=== PATIENT | female | born 1970 | race Caucasian/White ===

== ENCOUNTER 2022-03-01 16:18 | Outpatient (CLI) | payer OTHER, SELFPAY ==
--- NOTE | ~2022-03-01 | MM_ITS ---
EXAMINATION: MM screening adriel BI w jean claude HISTORY: Screening mammogram, family history of breast cancer in her mother. TECHNIQUE: Craniocaudal and mediolateral oblique 3-D tomosynthesis images were obtained and synthetic 2-D images were generated. CAD analysis was submitted and interpreted. COMPARISON: 03/14/2019, 07/01/2016, 04/22/2015 BREAST PARENCHYMAL COMPOSITION: There are scattered areas of fibroglandular density. FINDINGS: There is no suspicious mass, calcification, or architectural distortion to suggest malignan cy in either breast. There has been no suspicious interval change. IMPRESSION: 1. No mammographic evidence of malignancy. 2. Recommend routine screening mammography in one year. BI-RADS Category 1: Negative Reviewed, dictated and finalized at location A.
== END 2022-03-01 16:19 | disposition home or self-care (01) ==
LOC: ANHIMG 16:25
PROVIDERS: PCP Family Medicine; Visit Provider Obstetrics & Gynecology
DX: Z12.31 Encounter for screening mammogram for malignant neoplasm of breast (principal)
CPT/HCPCS: 77063; 77067

== ENCOUNTER 2024-09-10 09:10 | Outpatient (CLI) | payer OTHER, SELFPAY ==
--- NOTE | ~2024-09-10 | MM_ITS ---
EXAMINATION: MM screening adriel BI w jean claude HISTORY: Screening TECHNIQUE: Craniocaudal and mediolateral oblique 3-D tomosynthesis images were obtained and synthetic 2-D images were generated. CAD analysis was submitted and interpreted. COMPARISON: Comparison to multiple prior studies sequentially, with oldest reviewed study dated 06/21. BREAST PARENCHYMAL COMPOSITION: Not dense: There are scattered areas of fibroglandular density. FINDINGS: There is no evidence of suspicious mass, calcification, or architectural distortion to sugg est malignancy in either breast. There has been no suspicious interval change. IMPRESSION: 1. No mammographic evidence of malignancy. 2. Recommend routine screening mammography in one year. BI-RADS Category 1: Negative Reviewed, dictated and finalized at location A. N DYER
--- OUTSIDE RECORDS SUMMARY | 2024-09-12 16:39 | XMS_ITS | Clinical Summary ---
Author Organization [facility] Address [address] [place] [id number] Care Team Providers Care Varnish Mixer Name Role Phone Unavailable Primary Care Provider Unavailabl e Social History Tobacco Use Types Packs/Day Years Used Date Smoking Tobacco: Never Assessed Comments Unknown Sex and Gender Information Value Date Recorded Sex Assigned at Not on file Legal Sex Female 11:57 AM HEADRIG SAWYER Gender Identity Not on file Sexual Orientation Not on file Plan of Treatment Health Maintenance Due Date Last Done Comments Hepatitis C Virus (HCV) Screening 1968 TdaP Immunization 1968 Hepatitis B Immunization (1 of 3 - 19+ 3-dose series) 1987 Pap Smear 1989 Cervical Cancer Screening (CCS) 1998 HPV/Cotest 1998 Colonoscopy 2013 Colorectal Cancer Screening 2013 Cologuard 2018 Immunochemical Fecal Occult Blood 2018 Mammogram 2018 Pneumococcal Immunization (5 0+ years) (1 of 1 - PCV) 2018 Zoster Immunization (1 of 2) 2018 Influenza Immunization (#1) 2024 SARS-COV-2 Immunization ( - 2023- season) 2024 Respiratory Syncytial Virus (RSV) Immunization (Adult) (1 - 1-dose 75+ series) 2043 Meningococcal Immunization (ACWY) Aged Out No longer eligible based on patient's age to complete this topic Pneumococcal Immunization Combined Aged Out No longer eligible based on patient's age to complete this topic Rotavirus Immunization Aged Out No lo nger eligible based on patient's age to complete this topic Insurance [employer] on file
--- OUTSIDE RECORDS SUMMARY | 2024-09-12 16:39 | XMS_ITS | Referral Summary ---
Author Organization [facility] Address [address] [place] [address] Care Team Providers Care Ship Propeller Finisher Name Role Phone Unavailable Primary Care Provider Unavailabl e Source Comments [facility],non-owned Affiliates and Associated Physician Practices is amultiple site organization consisting of ambulatory clinics and hospital sitesin [place], [place], [place] and [place]. This disclosure is being madepursuant to the Care Everywhere program and may not contain all information available regarding this patient. Last updated 18.[facility] [employer] Social History Tobacco Use Types Packs/Day Years Used Date Smoking Tobacco: Never Assessed Sex and Gender Information Value Date Recorded Sex Assigned at Not on file Gender Identity Not on file Sexual Orientation Not on file Last Filed Vital Signs Vital Sign Reading Time Taken Comments Blood Pressure 100/78 09/25/2014 10:15 AM LEAD APPLICATIONS DEVELOPER Pulse 61 09/25/2014 10:15 AM LEAD APPLICATIONS DEVELOPER Temperature 36.4 ??C (97.6 ??F) 09/25/2014 10:[address] Respiratory Rate 12 07/03/2014 1:34 PM LEAD APPLICATIONS DEVELOPER Oxygen Saturation 100% 09/25/2014 10:15 AM LEAD APPLICATIONS DEVELOPER Inhaled Oxygen Concentration - - Weight 71.5 kg (157 lb 9.6 oz) 09/25/2014 10:15 AM LEAD APPLICATIONS DEVELOPER Height 172.7 cm (5' 8 ) 07/03/2014 1:34 PM LEAD APPLICATIONS DEVELOPER Body Mass Index 23.96 07/03/2014 1:34 PM LEAD APPLICATIONS DEVELOPER Plan of Treatment Not on file Procedures Procedure Name Priority Date/Time Associated Diagnosis Comments HEPATITIS C ANTIBODY Routine 06/14/2014 11:51 AM CDT from Last 3 Months or Most Recently Relevant to Health Maintenance Results * HEPATITIS C ANTIBODY (06/14/2014 11:51 AM CDT) Hepatitis C Antibody NON-REACTI VE NON-REACT [facility]) Signal/Cutoff 0.02 <1.00 [facility]) Comment: Test Performed at: [facility] [address], [place] ??[id number] FERNANDA SYLVESTER DO,MPH Blood specimen (specimen) BLOOD SPECIMEN / Unknown 06/14/2014 11:51 AM CDT 06/14/2014 11:52 AM CDT Deonna Cobb MD LAB - CHEM ISTRY ORDERABLES [facility]) from Last 3 Months or Most Recently Relevant to Health Maintenance
--- OUTSIDE RECORDS SUMMARY | 2024-09-12 16:39 | XMS_ITS | Clinical Summary ---
Author Organization [facility] Address [address] [place] [address] Care Team Providers Care Service Developer Name Role Phone Talya Alexandre MD Primary Care Provider [phone] Esther Figueroa MD Unavailable [phone] eBss Scruggs MD Unavailable Allergies Active Allergy Reactions Criticality Noted Date Comments Carbamazepine Hives Medium Adalimumab Rash Medium 12/21/2023 Medications econazole 1 % cream apply by topical route 2 times every day to the affected and surrounding areas of skin 0 0 5 Active folic acid (FOLVITE) 1 mg tablet take 1 tablet by oral route every day 0 0 5 Active estrogens-methy lTESTOSTERone (EEMT,COVARYX) 1.25-2.5 mg per tablet 5 9 Active predniSONE (DELTASONE) 5 mg tablet As needed 2 Active traMADoL (ULTRAM) 50 mg tablet every 8 (eight) hours as needed Active apremilast (Otezla) 30 mg tablet Take 1 tablet (30 mg total) by mouth 2 (two) times a day Active Simponi 50 mg/0.5 mL pen injector Inject 0.5 mL (50 mg total) under the skin every 30 (thirty) days 4 Active lamoTRIgine XR (LaMICtal XR) 300 mg tablet extended release 24hr Take 1 tablet (300 mg total) by mouth 2 (two) times a day 180 tablet 3 4 Active atogepant 60 mg tablet Take 60 mg by mouth daily 90 tablet 3 4 06/27/20 25 Active acetaZOLAMIDE (DIAMOX) 250 mg tablet TAKE 2 TABLETS TWICE A DAY 360 tablet 3 4 Active methotrexate 2.5 mg tablet 10 tablets orally once a week 4 Active benzonatate (TESSALON) 100 mg capsuleIndicati ons:Cough Take 1-2 capsules (100-200 mg total) by mouth 3 (three) times a day as needed for cough 42 capsule 4 Active albuterol HFA (PROVENTIL HFA,VENTOLIN HFA,PROAIR HFA) 90 mcg/actuation inhalerIndicati ons:Acute cough 1-2 puffs every 4-6 hrs PRN cough, sob, or wheezing 1 each 4 Active predniSONE (DELTASONE) 10 mg tabletIndicatio ns:Acute cough Take 1 tablet (10 mg) by mouth 2 (two) times a day 10 tablet 4 Active doxycycline (VIBRAMYCIN) 100 mg capsuleIndicati ons:Recurrent sinusitis Take 1 tablet/capsule (100 mg total) by mouth 2 (two) times a day for 7 days 14 tablet/capsu le 4 08/13/20 24 Active Problems Problem Noted Date Diagnosed Date Family history of cerebral aneurysm 07/03/2023 Psoriatic arthritis 12/29/2022 12/29/2022 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 12/29/2022 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 3 Situational stress 09/09/2019 Intractable migraine without aura and without status migrainosus 06/02/2017 Visual changes 06/02/2017 Transient visual loss 03/16/2016 Migraine headache 03/16/2016 Pain of lumbar spine 07/27/2015 Generalized epilepsy (CMS/HCC) 09/16/2014 Overview (11/24/2016): Generalized epilepsy Arthralgia of hip 12/20/2012 Encounters Date Type Department Care Team Description 08/06/2024 4:[address] Office Visit [facility] at [address] [place] [address] [place] [address] Deonna Corea, ALEJANDRO Recurrent sinusitis (Primary Dx); Acute cough 07/09/2024 2:[address] CONTRACTOR Office Visit [facility] [place] [address] [place] [address] [place] [address] Deonna Corea NP Acute non-recurrent maxillary sinusitis (Primary Dx); Herpangina; Sore throat 06/27/2024 8:[address] CONTRACTOR Office Visit [facility] [address] [place] [address] Esther Figueroa MD Generalized epilepsy ([facility]) ([facility]) (Primary Dx); Intractable migraine without aura and without status migrainosus from Last 3 Months Immunizations Name Administration Dates Next Due Influenza, Trivalent, Cell C ulture-based MDCK, Preservative Free, Antibiotic Free, Intramuscular 06/10/2024 Surgical History Surgery Date Site/Laterality Comments APPENDECTOMY Appendectomy BREAST LUMPECTOMY Lumpectomy Medical History Medical History Date Comments Seizure disorder ([facility]) ([facility]) last seizure > 1 year Migraines acetazolamide- f ollowed by neuro Psoriatic arthritis followed by rheum , discovered by vision changes, joint pain Covid x3 Family History Medical History Relation Name Comments Brain Aneurysm Father Stroke Father Atrial fibrillation Mother Breast cancer Mother Heart failure Mother Pulmonary fibrosis Mother stomach aneurysm Mother Epilepsy Mother's Sister Esophageal cancer Other 1 son [place] Brain Aneurysm Other 2 maternal aunt Stroke Other 2 maternal aunt Aortic aneurysm Other 3 paternal uncle stomach aneurysm Paternal Grandfather Colon cancer Neg Hx Relation Name Status Comments Father Mother Mother's Sister Other 1 son Other 2 maternal aunt Alive Other 3 paternal uncle Alive Paternal Grandfather Social History Tobacco Use Types Packs/Day Years Used Date Smoking Tobacco: Never Smokeless Tobacco: Never Tobacco Cessation:Counseling Given: Not Answered Alcohol Use Standard Drinks/Week Comments No 0 (1 standard drink = 0.6 oz pur e alcohol) AUDIT-C Answer Date Recorded Q1: How often do you have a drink containing alc ohol? Monthly or less 06/27/2024 Q2: How many drinks containi ng alcohol do you have on a typical day when you are drinking? 1 or 2 06/27/2024 Q3: How often do you have si x or more drinks on one occasion? Never 06/27/2024 PHQ-2 Answer Date Recorded PHQ-2 Total Score (If total score is 3 or more points, staff should administer the PHQ-9) 0 07/17/2023 Comments Unknown Sex and Gender Information Value Date Recorded Sex Assigned at Not on file Legal Sex Female 1:[address] Gender Identity Not on file Sexual Orientation Not on file Obstetrics History Last Filed Vital Signs Vital Sign Reading Time Taken Comments Blood Pressure 124/82 08/06/2024 4:[address] CONTRACTOR Pulse 58 08/06/2024 4:[address] CONTRACTOR Temperature 36.6 ??C (97.9 ??F) 08/06/2024 4:38 PM CS T Respiratory Rate 16 06/27/2024 7:[address] CONTRACTOR Oxygen Saturation 97% 08/06/2024 4:[address] CONTRACTOR Inhaled Oxygen Concentration - - Weight 77.8 kg (171 lb 9.6 oz) 08/06/2024 4:[address] CONTRACTOR Height 167.7 cm (5' 6.02 ) 06/27/2024 7:58 AM CS T Body Mass Index 27.68 06/27/2024 7:[address] CONTRACTOR Plan of Treatment Health Maintenance Due Date Last Done Comments Breast Cancer Screening-Mammogram 1968 Cervical Cancer Screening 1968 Colon Cancer Screening-Colonoscopy 1968 Hepatitis C Screening 1968 Pneumococcal vaccine <65 (1 of 2 - PCV) 1974 DTaP/Tdap/Td Vaccine (1 - Tdap) 1979 Hepatitis B Screening 1986 Regular Well Visit/Exam 18-64 1986 Zoster Vaccine (1 of 2) 1987 Covid-19 Vaccine (3 - Pfizer risk series) 10/29/2020 10/01/2020, 09/10/2020 Depression Screening 07/17/2024 07/17/2023 Influenza Vaccine Completed 06/10/2024, 05/18/2020 Procedures Procedure Name Priority Date/Time Associated Diagnosis Comments POCT RAPID STREP Routine 07/09/2024 2:[address] CONTRACT[address] Sore throat from Last 3 Months Results * POCT rapid strep A (07/09/2024 2:[address] CONTRACTOR) Rapid Strep A, POC Negative Negative Swab 07/09/2024 2:[address] CONTRACT[address] Deonna Corea LEASING COORDINATOR POINT OF CARE TEST MODESTA HESTER Final Result from Last 3 Months Insurance [facility] [employer] [facility] [employer] Address: [place] [address] [facility] [employer] [facility] [employer] [facility] [employer] Care Teams Service Developer Relationship Specialty Start Date End Date Talya Alexandre MD [address] [place] [address] PCP - General Internal Medicine 07/17/23 Esther Figueroa MD [address] [facility] [address] [place] [address] Consulting Physician Neurology 07/17/23 Bess Scruggs MD [address] [facility] [address] [place] [address] Referring Physician Rheumatology 08/15/24
--- OUTSIDE RECORDS SUMMARY | 2024-09-12 16:39 | XMS_ITS | Referral Summary ---
Author Organization [facility] Address [address] [place] [address] Care Team Providers Care Metal Mold Dresser Name Role Phone Talya Alexandre MD Primary Care Provider Esther Figueroa MD Unavailable Bess Scruggs MD Unavailable Encounters Date Type Department Care Team Description 08/06/2024 4:30 PM TEAM AUTOMOBILE ASSEMBLER Office Visit [facility] at [address] [address] Deonna Corea NP Recurrent sinusitis (Primary Dx); Acute cough 07/09/2024 2:30 PM TEAM AUTOMOBILE ASSEMBLER Office Visit [facility] at [address] [address] Deonna Corea NP Acute non-recurrent maxillary sinusitis (Primary Dx); Herpangina; Sore throat 06/27/2024 8:00 AM TEAM AUTOMOBILE ASSEMBLER Office Visit [facility] [address] [place] [address] Esther Figueroa MD Generalized epilepsy (CMS/HCC) (HCC) (Primary Dx); Intractable migraine without aura and without status migrainosus from Last 3 Months Allergies Active Allergy Reactions Criticality Noted Date [...] (11/24/2016): Generalized epilepsy Arthralgia of hip 12/20/2012 Immunizations Name Administration Dates Next Due Influenza, Trivalent, Cell C ulture-based MDCK, Preservative Free, Antibiotic Free, Intramuscular 06/10/2024 Social History Tobacco Use Types Packs/Day Years [...] on file Legal Sex Female 1:21 AM TEAM AUTOMOBILE ASSEMBLER Gender Identity Not on file Sexual Orientation Not on file Last Filed Vital Signs Vital Sign Reading Time Taken Comments Blood Pressure 124/82 08/06/2024 4:38 PM TEAM AUTOMOBILE ASSEMBLER Pulse 58 08/06/2024 4:38 PM TEAM AUTOMOBILE ASSEMBLER Temperature 36.6 ??C (97.9 ??F) 08/06/2024 4:38 PM CS T Respiratory Rate 16 06/27/2024 7:58 AM TEAM AUTOMOBILE ASSEMBLER Oxygen Saturation 97% 08/06/2024 4:38 PM TEAM AUTOMOBILE ASSEMBLER Inhaled Oxygen Concentration - - Weight 77.8 kg (171 lb 9.6 oz) 08/06/2024 4:38 P M TEAM AUTOMOBILE ASSEMBLER Height 167.7 cm (5' 6.02 ) 06/27/2024 7:58 AM CS T Body Mass Index 27.68 06/27/2024 7:58 AM TEAM AUTOMOBILE ASSEMBLER Plan of Treatment Not on file Procedures Procedure Name Priority Date/Time Associated Diagnosis Comments POCT RAPID STREP Routine 07/09/2024 2:51 PM TEAM AUTOMOBILE ASSEMBLER Sore throat from Last 3 Months Results * POCT rapid strep A (07/09/2024 2:51 PM TEAM AUTOMOBILE ASSEMBLER) [facility] Signature Rapid Strep A, POC Negative Negative Swab 07/09/2024 2:51 PM TEAM AUTOMOBILE ASSEMBLER Deonna Corea NP POINT OF CARE TEST MODESTA MIR Final Result from Last 3 Months Insurance [facility] [employer] [facility] [employer] [facility] [employer] [facility] [employer] [place] [id number] Care Teams Metal Mold Dresser Relationship Specialty Start Date End Date Talya Alexandre MD [address] [facility] [address] [address] [place] [address] PCP - General Internal Medicine 07/17/23 Esther Figueroa MD [address] [facility] [address] [place] [address] Consulting Physician Neurology 07/17/23 Bess Scruggs MD [address] [facility] [address] [place] [address] Referring Physician Rheumatology 08/15/24
--- OUTSIDE RECORDS SUMMARY | 2024-09-12 16:39 | XMS_ITS | Clinical Summary ---
Author Organization [facility] Address [address] [place] [address] Care Team Providers Care Line Service Supervisor Name Role Phone Unavailable Primary Care Provider Unavailabl e Source Comments [facility],non-owned Affiliates and Associated Physician Practices is amultiple site organization consisting of ambulatory clinics and hospital sitesin [place], [place], [place] and [place]. This disclosure is being madepursuant to the Care Everywhere program and may not contain all information available regarding this patient. Last updated 18.[facility] Social History Tobacco Use Types Packs/Day Years Used Date Smoking Tobacco: Never Assessed Sex and Gender Information Value Date Recorded Sex Assigned at Not on file Gender Identity Not on file Sexual Orientation Not on file Last Filed Vital Signs Vital Sign Reading Time Taken Comments Blood Pressure 100/78 09/25/2014 10:15 AM ORGAN PIPE MAKER METAL Pulse 61 09/25/2014 10:15 AM ORGAN PIPE MAKER METAL Temperature 36.4 ??C (97.6 ??F) 09/25/2014 10:[address] Respiratory Rate 12 07/03/2014 1:34 PM ORGAN PIPE MAKER METAL Oxygen Saturation 100% 09/25/2014 10:15 AM ORGAN PIPE MAKER METAL Inhaled Oxygen Concentration - - Weight 71.5 kg (157 lb 9.6 oz) 09/25/2014 10:15 AM ORGAN PIPE MAKER METAL Height 172.7 cm (5' 8 ) 07/03/2014 1:34 PM ORGAN PIPE MAKER METAL Body Mass Index 23.96 07/03/2014 1:34 PM ORGAN PIPE MAKER METAL Plan of Treatment Health Maintenance Due Date Last Done Comments COLOGUARD (AGES 45-75) - COL ON CA SCREENING 1968 COLON MONITORING 1968 COLONOSCOPY - COLON CA SCREENING 1968 CT COLONOGRAPHY - COLON CA SCREENING 1968 Colorectal Cancer Screening 1968 FIT - COLON CA SCREENING 1968 FLEX SIG - COLON CA SCREENING 1968 LIPID TESTING 1968 MAMMOGRAM 1968 PAP SMEAR 1968 HIV SCREENING 1983 DTAP/TDAP/TD VACCINES (1 - Tdap) 1987 HEPATITIS B VACCINE (1 of 3 - 19+ 3-dose series) 1987 PNEUMOCOCCAL VACCINE 50+ (1 of 1 - PCV) 2018 ZOSTER VACCINE (1 of 2) 2018 COVID-19 VACCINE (1 - 2023-2 5 season) 2024 INFLUENZA VACCINE (#1) 2024 DEPRESSION SCREENING 08/21/2024 HEPATITIS C SCREENING Completed 06/14/2014 HIB VACCINE Aged Out No longer eligi ble based on patient's age to complete this topic HPV VACCINE Aged Out No longer eligi ble based on patient's age to complete this topic MENINGOCOCCAL (Group B) VACCINE Aged Out No longer eligible based on patient's age to complete this topic MENINGOCOCCAL VACCINE Aged Out No sherri cindy eligible based on patient's age to complete this topic PNEUMOCOCCAL VACCINE Aged Out No long er eligible based on patient's age to complete this topic Procedures Procedure Name Priority Date/Time Associated Diagnosis Comments HEPATITIS C ANTIBODY Routine 06/14/2014 11:51 AM CDT from Last 3 Months or Most Recently Relevant to Health Maintenance Results * HEPATITIS C ANTIBODY (06/14/2014 11:51 AM CDT) Hepatitis C Antibody NON-REACTI VE NON-REACT [facility]) Signal/Cutoff 0.02 <1.00 [facility]) Comment: Test Performed at: [facility] [address] ??[phone] FERNANDA SYLVESTER DO,MPH Blood specimen (specimen) BLOOD SPECIMEN / Unknown 06/14/2014 11:51 AM CDT 06/14/2014 11:52 AM CDT Deonna Cobb MD LAB - CHEM ISTRY ORDERABLES [facility] ([facility]) from Last 3 Months or Most Recently Relevant to Health Maintenance
--- OUTSIDE RECORDS SUMMARY | 2024-09-12 16:39 | XMS_ITS | Patient Health Summary ---
Author Organization [facility] Address [address] [place] [address] Care Team Providers Care Internet Marketing Strategist Name Role Phone Unavailable Primary Care Provider Unavailabl e Note from [facility],non-owned Affiliates and Associated Physician Practices is amultiple site organization consisting of ambulatory clinics and hospital sitesin [place], [place], [place] and [place]. This disclosure is being madepursuant to the Care Everywhere program and may not contain all information available regarding this patient. 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 Temperature 36.4 ??C (97.6 ??F) 09/25/2014 10:[address] Respiratory Rate 12 07/03/2014 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 Oxygen Saturation 100% 09/25/2014 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 Inhaled Oxygen Concentration - - Weight 71.5 kg (157 lb 9.6 oz) 09/25/2014 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 Height 172.7 cm (5' 8 ) 07/03/2014 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 Body Mass Index 23.96 07/03/2014 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 Procedures * URINALYSIS W/MICROSCOPIC NO CULTURE(Performed 03/18/2015) * COMPREHENSIVE METABOLIC PANEL(Performed 03/18/2015) * CBC W AUTO DIFFERENTIAL(Performed 03/18/2015) * URINALYSIS W/MICROSCOPIC NO CULTURE(Performed 01/15/2015) * COMPREHENSIVE METABOLIC PANEL(Performed 01/15/2015) * CBC W AUTO DIFFERENTIAL(Performed 01/15/2015) * URINALYSIS W/MICROSCOPIC NO CULTURE(Performed 12/02/2014) * COMPREHENSIVE METABOLIC PANEL(Performed 12/02/2014) * CBC W AUTO DIFFERENTIAL(Performed 12/02/2014) * CBC W AUTO DIFFERENTIAL(Performed 10/16/2014) * URINALYSIS W/MICROSCOPIC NO CULTURE(Performed 10/16/2014) * COMPREHENSIVE METABOLIC PANEL(Performed 10/16/2014) * URINALYSIS W/MICROSCOPIC NO CULTURE(Performed 10/16/2014) * COMPREHENSIVE METABOLIC PANEL(Performed 10/16/2014) * CBC W AUTO DIFFERENTIAL(Performed 08/29/2014) * URINALYSIS W/MICROSCOPIC NO CULTURE(Performed 08/29/2014) * COMPREHENSIVE METABOLIC PANEL(Performed 08/29/2014) * COMPREHENSIVE METABOLIC PANEL(Performed 08/29/2014) * CBC W AUTO DIFFERENTIAL(Performed 08/29/2014) * URINALYSIS W/MICROSCOPIC NO CULTURE(Performed 07/21/2014) * COMPREHENSIVE METABOLIC PANEL(Performed 07/21/2014) * CBC W AUTO DIFFERENTIAL(Performed 07/21/2014) * HLA TYPING B27(Performed 06/14/2014) * COMPLEMENT TOTAL(Performed 06/14/2014) * COMPLEMENT C4(Performed 06/14/2014) * COMPLEMENT C3(Performed 06/14/2014) * IMMUNOGLOBULINS IGG/IGM/IGA PANEL(Performed 06/14/2014) * CYCLIC CITRULLINATED PEPTIDE(CCP) AB IGG(Performed 06/14/2014) * RHEUMATOID FACTOR BLOOD QUANTITATIVE(Performed 06/14/2014) * SCLERODERMA 70 (SCL) ANTIBODY(Performed 06/14/2014) * EXAMINER OF CURRENCY ANTIBODY(Performed 06/14/2014) * KOEHLER (SM) ANTIBODY MARIOLA(Performed 06/14/2014) * SS-A/SS-B (SJOGREN'S) ANTIBODY PANEL(Performed 06/14/2014) * DNA ANTIBODY DOUBLE STRANDED(Performed 06/14/2014) * DNA ANTIBODY DS CRITHIDIA IFA(Performed 06/14/2014) * GEETA BLOOD SCREEN W/REFLEX TITER(Performed 06/14/2014) * QUANTIFERON TB-GOLD(Performed 06/14/2014) * ALDOLASE(Performed 06/14/2014) * CK BLOOD(Performed 06/14/2014) * C-REACTIVE PROTEIN(Performed 06/14/2014) * ERYTHROCYTE SEDIMENTATION RATE(Performed 06/14/2014) * BETA-2 GLYCOPROTEIN 1 ANTIBODY IGM(Performed 06/14/2014) * BETA-2 GLYCOPROTEIN 1 ANTIBODY IGG(Performed 06/14/2014) * LUPUS ANTICOAGULANT PANEL W RFLX(Performed 06/14/2014) * CARDIOLIPIN ANTIBODY IGM(Performed 06/14/2014) * CARDIOLIPIN ANTIBODY IGG(Performed 06/14/2014) * HEPATITIS C ANTIBODY(Performed 06/14/2014) * HEPATITIS B SURFACE ANTIGEN W RFLX CONFIRMATION(Performed 06/14/2014) * HEPATITIS B CORE ANTIBODY TOTAL(Performed 06/14/2014) * VITAMIN D 25-HYDROXY D2+D3(Performed 06/14/2014) * TSH(Performed 06/14/2014) * URINALYSIS W/MICROSCOPIC NO CULTURE(Performed 06/14/2014) * COMPREHENSIVE METABOLIC PANEL(Performed 06/14/2014) * CBC W AUTO DIFFERENTIAL(Performed 06/14/2014) * CULTURE AEROBIC(Performed 06/13/2014) * GROSS + MICRO EXAM(Performed 05/30/2000) Results * (ABNORMAL) URINALYSIS W/MICROSCOPIC NO CULTURE (03/18/2015 1:58 PM CDT) Only the most recent of8 resultswithin the time period is included. Color UA YELLOW YELLOW [facility] Appearance CLOUDY(A) CLEAR [facility]) Specific [place] UA 1.014 1.001 - 1.035 [facility] pH Urine 6.5 5.0 - 8.0 [facility] Glucose UA NEGATIVE NEGATIVE [facility]) Bilirubin UA NEGATIVE NEGATIVE [facility]) Ketone UA NEGATIVE NEGATIVE [facility] Occult Blood NEGATIVE NEGATIVE [facility]) Protein UA NEGATIVE NEGATIVE [facility] Nitrite UA NEGATIVE NEGATIVE [facility]) Leukocyte Esterase 2+(A) NEGATIVE [facility]) WBC Urine 6-10(A) < OR = 5 /HPF [facility] RBC Urine 0-2 < OR = 2 /HPF [facility]) Squamous Epithelial Cells UA 10-20(A) < OR = 5 /HPF [facility]) Bacteria UA FEW(A) NONE SEEN /HPF [facility]) Hyaline Casts UA NONE SEEN NONE SEEN /LPF [facility]) Comment UA FEW MUCOUS THREADS [facility]) Comment: Test Performed at: [facility] [address] [facility] [place] ??[phone] FERNANDA SYLVESTER DO,MPH Urine specimen (specimen) URINE SPECIMEN OBTAINED BY CLEAN CATCH PROCEDURE / Unknown 03/18/2015 1:58 PM CDT 03/18/2015 2:00 PM CDT Deonna Cobb MD LAB - URIN ALYSIS ORDERABLES [facility]) * CBC W AUTO DIFFERENTIAL (03/18/2015 1:58 PM CDT) Only the most recent of8 resultswithin the time period is included. WBC 4.6 3.8 - 10.8 Thousand/u L [facility]) RBC 4.01 3.80 - 5.10 Million/uL [facility]) Hemoglobin 12.9 11.7 - 15.5 g/dL [facility]) Hematocrit 39.1 35.0 - 45.0 % [facility] MCV 97.5 80.0 - 100.0 fL [facility]) MCH 32.1 27.0 - 33.0 pg [facility] MCHC 32.9 32.0 - 36.0 g/dL [facility]) RDW-CV 13.2 11.0 - 15.0 % [facility]) Platelet 196 140 - 400 Thousand/u L [facility]) MPV 9.2 7.5 - 11.5 fL [facility]) Neutrophils Absolute 3,174 1,500 - 7,800 cells/uL [facility]) Lymphocyte Absolute Manual 980 850 - 3,900 cells/uL [facility]) Monocytes Absolute 327 200 - 950 cells/uL [facility]) Eosinophils Absolute 97 15 - 500 cells/uL [facility]) Basophil Absolute Manual 23 0 - 200 cells/uL [facility]) Neutrophils % 69.0 % [facility]) Lymphocytes % 21.3 % [facility]) Monocytes % 7.1 % [facility]) Eosinophils % 2.1 % [facility]) Basophil % 0.5 % [facility]) Comment: REPORT COMMENT: FASTING:NO Test Performed at: [facility] ??[phone] FERNANDA SYLVESTER DO,MPH Blood specimen (specimen) BLOOD SPECIMEN / Unknown 03/18/2015 1:58 PM CDT 03/18/2015 2:00 PM CDT Deonna Cobb MD LAB - JORGE TOLOGY ORDERABLES [facility]) * COMPREHENSIVE METABOLIC PANEL (03/18/2015 1:58 PM CDT) Only the most recent of9 resultswithin the time period is included. Glucose 78 65 - 99 mg/dL [facility] ([facility]) Comment: ? Fasting reference interval BUN 8 7 - 25 mg/dL [facility] ([facility]) Creatinine 0.69 0.50 - 1.10 mg/dL [facility] ([facility]) eGFR non- 104 > OR = 60 mL/min/1. 73m2 [facility] eGFR 121 > OR = 60 mL/min/1. 73m2 [facility] BUN/Creatinine Ratio NOT APPLICABLE 6 - 22 (calc) [facility]) Sodium 140 135 - 146 mmol/L [facility] ([facility]) Potassium 4.1 3.5 - 5.3 mmol/L [facility]) Chloride 104 98 - 110 mmol/L [facility] ([facility]) CO2 27 19 - 30 mmol/L [facility] ([facility]) Calcium 9.3 8.6 - 10.2 mg/dL [facility] ([facility]) Protein Total 6.9 6.1 - 8.1 g/dL [facility] ([facility]) Albumin 4.3 3.6 - 5.1 g/dL [facility]) Globulin 2.6 1.9 - 3.7 g/dL (calc) [facility]) Albumin/Globuli n Ratio 1.7 1.0 - 2.5 (calc) [facility]) Bilirubin Total 0.6 0.2 - 1.2 mg/dL [facility] ([facility]) Alkaline Phosphatase 64 33 - 115 U/L [facility] ([facility]) AST 16 10 - 35 U/L [facility]) ALT 13 6 - 29 U/L [facility] ([facility]) Comment: Test Performed at: [facility] [address] [place], [place] ??[phone] FERNANDA SYLVESTER DO,MPH Blood specimen (specimen) BLOOD SPECIMEN / Unknown 03/18/2015 1:58 PM CDT 03/18/2015 2:00 PM CDT Deonna Cobb MD LAB - CHEM ISTRY ORDERABLES [facility] ([facility]) * HLA TYPING B27 (06/14/2014 11:55 AM CDT) Pathologist [facility] [place] HLA-B27 NEGATIVE NEGATIVE [facility] ([facility]) Comment: Test Performed at: [facility] ??[phone] EMMETT SANTIAGO MD Blood specimen (specimen) BLOOD SPECIMEN / Unknown 06/14/2014 11:55 AM CDT 06/14/2014 11:55 AM CDT Deonna Cobb MD LAB - CHEM ISTRY ORDERABLES Performing Organization Address [facility] Co de Phone Number [facility] ([facility]) * (ABNORMAL) COMPLEMENT TOTAL (06/14/2014 11:53 AM CDT) Pathologist [facility] [place] Complement Total CH50 >60(H) 31 - 60 U/mL [facility] ([facility]) Comment: Test Performed at: [facility] [place] [address] [place], [place] ??[phone] FERNANDA SYLVESTER DO,MPH Blood specimen (specimen) BLOOD SPECIMEN / Unknown 06/14/2014 11:53 AM CDT 06/14/2014 11:54 AM CDT Deonna Cobb MD LAB - CHEM ISTRY ORDERABLES Performing Organization Address City/[facility]/ZIP Co de Phone Number [facility] ([facility]) * (ABNORMAL) VITAMIN D 25-HYDROXY D2+D3 BY TANDEM MASS (06/14/2014 11:51 AM CDT) Pathologist [facility] [place] Vitamin D, 25 Hydroxy Total 22(L) 30 - 100 ng/mL [facility] ([facility]) Comment: 25-OHD3 indicates both endogenous production and supplementation. 25-OHD2 is an indicator of exogenous sources, such as diet or supplementation. Therapy is based on measurement of Total 25-OHD, with levels <20 ng/mL indicative of Vitamin D deficiency, while levels between 20 ng/mL and 30 ng/mL suggest insufficiency. Optimal levels are > or = 30 ng/mL. Vitamin D, 25 Hydroxy D3 22 See Below ng/mL [facility] ([facility]) Comment:Reference Range: Not established Vitamin D, 25 Hydroxy D2 <4 See Below ng/mL [facility] ([facility]) Comment: Reference Range: Not established Test Performed at: [facility] [place] [address] [place], [place] ??[phone] FAUSTO RUGGIERO MD,FCAP Blood specimen (specimen) BLOOD SPECIMEN / Unknown 06/14/2014 11:51 AM CDT 06/14/2014 11:52 AM CDT Deonna Cobb MD LAB - CHEM ISTRY ORDERABLES [facility] ([facility]) * BETA-2 GLYCOPROTEIN 1 ANTIBODY IGG (06/14/2014 11:51 AM CDT) Beta-2 Glycoprotein 1 Antibody 1 IgG <9 <=20 SGU [facility] ([facility]) Comment: Test Performed at: [facility]/[employer] [place] [id number] [place] [address] ??[phone] DUKE ANDERSON MD Blood specimen (specimen) BLOOD SPECIMEN / Unknown 06/14/2014 11:51 AM CDT 06/14/2014 11:52 AM CDT Deonna Cobb MD LAB - SERO LOGY ORDERABLES [facility] ([facility]) * BETA-2 GLYCOPROTEIN 1 ANTIBODY IGM (06/14/2014 11:51 AM CDT) Beta-2 Glycoprotein 1 Antibody IgM <9 <=20 [facility]) Comment: Test Performed at: [facility] [address] [place], [place] ??[phone] DUKE ANDERSON MD Blood specimen (specimen) BLOOD SPECIMEN / Unknown 06/14/2014 11:51 AM CDT 06/14/2014 11:52 AM CDT Deonna Cobb MD LAB - SERO LOGY ORDERABLES Performing Organization Address [facility] de Phone Number [facility]) * DNA ANTIBODY DS CRITHIDIA IFA (06/14/2014 11:51 AM CDT) dsDNA Antibody Crithidia IFA NEGATIVE NEGATIVE [facility] ([facility]) Comment: This test was developed and its performance characteristics have been determined by [facility]. It has not been cleared or approved by the U.S. Food and Drug Administration. The FDA has determined that such clearance or approval is not necessary. Performance characteristics refer to the analytical performance of the test. dsDNA Antibody Crithidia Titer TNP-Reflex testing not required. [facility] ([facility]) Comment: Test Performed at: [facility]/[employer] [facility] [address] [place], [place] ??[phone] EMILE MOELLER MD PHD 06/14/2014 11:5 1 AM CDT 06/14/2014 11:52 AM CDT Deonna Cobb MD LAB - SERO LOGY ORDERABLES Performing Organization Address [facility] de Phone Number [facility] ([facility]) * CARDIOLIPIN ANTIBODY IGM (06/14/2014 11:51 AM CDT) Cardiolipin Antibody IgM <12 <=12 MPL [facility] ([facility]) Comment: Cardiolipin Ab (IgM) ? Reference range: ?? Value Units Interpretation ?? <=12 ?? MPL ? Negative ??13-20 ?? MPL ? Indeterminate ??21-80 ?? MPL ? Low to Medium Positive ?>80 ?? MPL ? High Positive Test Performed at: [facility]/[employer] [address] [place] [address] ?? DUKE ANDERSON MD Blood specimen (specimen) BLOOD SPECIMEN / Unknown 06/14/2014 11:51 AM CDT 06/14/2014 11:52 AM CDT Deonna Cobb MD LAB - SERO LOGY ORDERABLES Performing Organization Address [facility] de Phone Number [facility] ([facility]) * CARDIOLIPIN ANTIBODY IGG (06/14/2014 11:51 AM CDT) Cardiolipin Antibody IgG <14 <=14 GPL [facility] ([facility]) Comment: Cardiolipin Ab (IgG) ? Reference range: ?? Value Units Interpretation ?? <=14 ?? GPL ? Negative ??15-20 ?? GPL ? Indeterminate ??21-80 ?? GPL ? Low to Medium Positive ?>80 ?? GPL ? High Positive Test Performed at: [facility]/[employer] [address] [place] [address] ?? DUKE ANDERSON MD Blood specimen (specimen) BLOOD SPECIMEN / Unknown 06/14/2014 11:51 AM CDT 06/14/2014 11:52 AM CDT Deonna Cobb MD LAB - SERO LOGY ORDERABLES Performing Organization Address [facility] de Phone Number [facility] ([facility]) * LUPUS ANTICOAGULANT PANEL W RFLX (06/14/2014 11:51 AM CDT) Lupus Anticoagulant see note [facility] ([facility]) Comment: A Lupus Anticoagulant is not detected. Reference Range: ??Not Detected ? http://education.[employer].Flareo/faq/LupusAnticoag ? This interpretation is based on the following test results. PTT Lupus Anticoagulant 36 <=40 sec [facility] ([facility]) Interpretation Not Indicated [facility] ([facility]) dRVVT Screen 39 <=45 sec [facility] ([facility]) Comment: Test Performed at: [facility]/[address] ?? DUKE ANDERSON MD Plasma specimen (specimen) 06/14/2014 11:51 AM CDT 06/14/2014 11:52 AM CDT Deonna Cobb MD LAB - JORGE TOLOGY ORDERABLES Performing Organization Address City/[facility]/ZIP Co de Phone Number [facility] ([facility]) * KOEHLER (SM) ANTIBODY MARIOLA (06/14/2014 11:51 AM CDT) MARIOLA Koehler (SM) Antibody <1.0 NEG <1.0 NEG AI [facility] ([facility]) Comment: Test Performed at: [facility] [place] [address] [place], [place] ??[phone] FERNANDA SYLVESTER DO,MPH Blood specimen (specimen) BLOOD SPECIMEN / Unknown 06/14/2014 11:51 AM CDT 06/14/2014 11:52 AM CDT Deonna Cobb MD LAB - CHEM ISTRY ORDERABLES [facility] ([facility]) * EXAMINER OF CURRENCY ANTIBODY (06/14/2014 11:51 AM CDT) MARIOLA EXAMINER OF CURRENCY Antibody <1.0 NEG <1.0 NEG AI [facility] ([facility]) Comment: Test Performed at: [facility] [place] [address] [place], [place] ??[phone] FERNANDA SYLVESTER DO,MPH Blood specimen (specimen) BLOOD SPECIMEN / Unknown 06/14/2014 11:51 AM CDT 06/14/2014 11:52 AM CDT Deonna Cobb MD LAB - CHEM ISTRY ORDERABLES Performing Organization Address [facility] de Phone Number [facility]) * (ABNORMAL) RHEUMATOID FACTOR BLOOD QUANTITATIVE (06/14/2014 11:51 AM CDT) Pathologist [facility] Rheumatoid Factor 18(H) <14 IU/mL [facility] ([facility]) Comment: Test Performed at: [facility] [address] [place], [place] ??[phone] FERNANDA SYLVESTER DO,MPH Blood specimen (specimen) BLOOD SPECIMEN / Unknown 06/14/2014 11:51 AM CDT 06/14/2014 11:52 AM CDT Deonna Cobb MD LAB - CHEM ISTRY ORDERABLES Performing Organization Address [facility] Phone Number [facility] ([facility]) * C-REACTIVE PROTEIN (06/14/2014 11:51 AM CDT) Pathologist [facility] C-Reactive Protein <0.10 <0.80 mg/dL [facility] ([facility]) Comment: Please be advised that patients taking Carboxypenicillins may exhibit falsely decreased C-Reactive Protein levels due to an analytical interference in this assay. Test Performed at: [facility] [address] [place], [place] ??[phone] FERNANDA SYLVESTER DO,MPH Blood specimen (specimen) BLOOD SPECIMEN / Unknown 06/14/2014 11:51 AM CDT 06/14/2014 11:52 AM CDT Deonna Cobb MD LAB - CHEM ISTRY ORDERABLES Performing Organization Address [facility] de Phone Number [facility]) * (ABNORMAL) GEETA BLOOD SCREEN W/REFLEX TITER (06/14/2014 11:51 AM CDT) Pathologist [facility] GEETA Screen POSITIVE( A) NEGATIVE [facility] ([facility]) GEETA Pattern #1 SPECKLED( A) [facility]) GEETA Pattern #1 1:40(H) titer [facility] ([facility]) Comment: ?Reference Range ?<1:40 ?Negative ?1:40-1:80 ?Low Antibody Level ?>1:80 ?Elevated Antibody Level Test Performed at: [facility] [address] [place], [place] ??[phone] FERNANDA SYLVESTER DO,MPH Blood specimen (specimen) BLOOD SPECIMEN / Unknown 06/14/2014 11:51 AM CDT 06/14/2014 11:52 AM CDT Deonna Cobb MD LAB - CHEM ISTRY ORDERABLES Performing Organization Address [facility] de Phone Number [facility] ([facility]) * SS-A/SS-B (SJOGRENS) ANTIBODY PANEL (06/14/2014 11:51 AM CDT) Sjogren's Antibodies (SSA) <1.0 NEG <1.0 NEG AI [facility] ([facility]) Sjogren's Antibodies (SSB) <1.0 NEG <1.0 NEG AI [facility] ([facility]) Comment: Test Performed at: [facility] [address] [place], [place] ??[phone] FERNANDA SYLVESTER DO,MPH 06/14/2014 11:5 1 AM CDT 06/14/2014 11:52 AM CDT Deonna Cobb MD LAB - CHEM ISTRY ORDERABLES Performing Organization Address [facility] de Phone Number [facility]) * SCLERODERMA 70 (SCL) ANTIBODY (06/14/2014 11:51 AM CDT) MARIOLA SCL-70 Antibody <1.0 NEG <1.0 NEG AI [facility] ([facility]) Comment: Test Performed at: [facility] [place] [address] [place], [place] ??[phone] FERNANDA SYLVESTER DO,MPH Blood specimen (specimen) BLOOD SPECIMEN / Unknown 06/14/2014 11:51 AM CDT 06/14/2014 11:52 AM CDT Deonna Cobb MD LAB - CHEM ISTRY ORDERABLES Performing Organization Address [facility] de Phone Number [facility] ([facility]) * DNA ANTIBODY DOUBLE STRANDED (06/14/2014 11:51 AM CDT) dsDNA Antibody 2 IU/mL [facility] ([facility]) Comment: ? IU/mL ? Interpretation ? < or = 4 ?Negative ? 5-9 ? Indeterminate ? > or = 10 ?? Positive Test Performed at: [facility] [address] [place], [place] ??[phone] FERNANDA SYLVESTER DO,MPH Blood specimen (specimen) BLOOD SPECIMEN / Unknown 06/14/2014 11:51 AM CDT 06/14/2014 11:52 AM CDT Deonna Cobb MD LAB - JORGE TOLOGY ORDERABLES Performing Organization Address [facility] de Phone Number [facility] ([facility]) * ALDOLASE (06/14/2014 11:51 AM CDT) Aldolase 2.5 < OR = 8.1 U/L [facility] ([facility]) Comment: Test Performed at: [facility] [place] [address] [place], [place] ??[phone] FERNANDA SYLVESTER DO,MPH Blood specimen (specimen) BLOOD SPECIMEN / Unknown 06/14/2014 11:51 AM CDT 06/14/2014 11:52 AM CDT Deonna Cobb MD LAB - CHEM ISTRY ORDERABLES Performing Organization Address [facility] Phone Number [facility]) * CYCLIC CITRUL PEPTIDE AB IGG (CCP) (06/14/2014 11:51 AM CDT) [facility] Cyclic Citrullinated Peptide Antibody <16 UNITS [facility] ([facility]) Comment: Reference Range Negative: ?<20 Weak Positive: ? 20-39 Moderate Positive: ?? 40-59 Strong Positive: ? >59 Test Performed at: [facility] [address] ??[phone] FERNANDA SYLVESTER DO,MPH Blood specimen (specimen) BLOOD SPECIMEN / Unknown 06/14/2014 11:51 AM CDT 06/14/2014 11:52 AM CDT Deonna Cobb MD LAB - CHEM ISTRY ORDERABLES Performing Organization Address [facility] Phone Number [facility]) * QUANTIFERON TB-GOLD (06/14/2014 11:51 AM CDT) [facility] QuantiFERON TB Gold NEGATIVE NEGATIVE [facility]) Comment: Negative test result. M. tuberculosis complex infection unlikely. QuantiFERON Nil Value 0.01 IU/mL [facility] QuantiFERON Mitogen Value >10.00 IU/mL [facility] QuantiFERON TB Antigen minus Nil value 0.01 IU/mL [facility]) Comment: The Nil tube value is used to determine if the patient has a preexisting immune response which could cause a false-positive reading on the test. In order for a test to be valid, the Nil tube must have a value of less than or equal to 8.0 IU/mL. The mitogen control tube is used to assure the patient has a healthy immune status and also serves as a control for correct blood handling and incubation. It is used to detect false-negative readings. The mitogen tube must have a gamma interferon value of greater than or equal to 0.5 IU/mL higher than the value of the Nil tube. The TB antigen tube is coated with the M. tuberculosis specific antigens. For a test to be considered positive, the TB antigen tube value minus the Nil tube value must be greater than or equal to 0.35 IU/mL. For additional information, please refer to http://education.Tourlandish/faq/QFT (This link is being provided for informational/ educational purposes only.) Test Performed at: [facility] [address] [place], [place] ??[phone] FERNANDA SYLVESTER DO,MPH Blood specimen (specimen) BLOOD SPECIMEN / Unknown 06/14/2014 11:51 AM CDT 06/14/2014 11:52 AM CDT Deonna Cobb MD LAB - CHEM ISTRY ORDERABLES Performing Organization Address City/[facility] Co de Phone Number [facility] ([facility]) * ERYTHROCYTE SEDIMENTATION RATE (06/14/2014 11:51 AM CDT) Pathologist [facility] [place] Erythrocyte Sedimentation Rate Westergren 6 < OR = 20 mm/h [facility] ([facility]) Comment: Test Performed at: [facility] [address] [place] [address] ??[phone] FERNANDA SYLVESTER DO,MPH Blood specimen (specimen) BLOOD SPECIMEN / Unknown 06/14/2014 11:51 AM CDT 06/14/2014 11:52 AM CDT Deonna Cobb MD LAB - JORGE TOLOGY ORDERABLES [facility] ([facility]) * COMPLEMENT C4 (06/14/2014 11:51 AM CDT) Complement C4 26 16 - 47 mg/dL [facility] ([facility]) Comment: Test Performed at: [facility] [address] [place], [place] ??[phone] FERNANDA SYLVESTER DO,MPH Blood specimen (specimen) BLOOD SPECIMEN / Unknown 06/14/2014 11:51 AM CDT 06/14/2014 11:52 AM CDT Deonna Cobb MD LAB - SERO LOGY ORDERABLES Performing Organization Address City/[facility]/ZIP Co de Phone Number [facility] ([facility]) * HEPATITIS B CORE ANTIBODY (06/14/2014 11:51 AM CDT) Hepatitis B Core Virus Antibody Total NON-REACTI VE NON-REACT NICOLE [facility] ([facility]) Comment: Test Performed at: [facility] [address] [place], [place] ??[phone] FERNANDA SYLVESTER DO,MPH Blood specimen (specimen) BLOOD SPECIMEN / Unknown 06/14/2014 11:51 AM CDT 06/14/2014 11:52 AM CDT Deonna Cobb MD LAB - CHEM ISTRY ORDERABLES Performing Organization Address [facility] de Phone Number [facility] ([facility]) * HEPATITIS B SURFACE ANTIGEN W RFLX CONFIRMATION (06/14/2014 11:51 AM CDT) Pathologist [facility] [place] Hepatitis B Virus Surface Antigen NON-REACTI VE NON-REACT NICOLE [facility]) Comment: Test Performed at: [facility] [address] [place], [place] ??[phone] FERNANDA SYLVESTER DO,MPH Blood specimen (specimen) BLOOD SPECIMEN / Unknown 06/14/2014 11:51 AM CDT 06/14/2014 11:52 AM CDT Deonna Cobb MD LAB - CHEM ISTRY ORDERABLES Performing Organization Address City/[facility]/ZIP Co de Phone Number [facility] ([facility]) * CK BLOOD (06/14/2014 11:51 AM CDT) CK Total 65 29 - 143 U/L [facility] ([facility]) Comment: Test Performed at: [facility] [place] [address] [place], [place] ??[address] FERNANDA SYLVESTER DO,MPH Blood specimen (specimen) BLOOD SPECIMEN / Unknown 06/14/2014 11:51 AM CDT 06/14/2014 11:52 AM CDT Deonna Cobb MD LAB - CHEM ISTRY ORDERABLES Performing Organization Address [facility] de Phone Number [facility] ([facility]) * TSH (06/14/2014 11:51 AM CDT) [facility] TSH 1.18 mIU/L [facility] ([facility]) Comment: ?Reference Range ?> or = 20 Years ??0.40-4.50 ? Ranges ?First trimester ?0.26-2.66 ?Second trimester ?? 0.55-2.73 ?Third trimester ?0.43-2.91 Test Performed at: [facility] [place] [id number] [place], [place] ??[phone] FERNANDA SYLVESTER DO,MPH Blood specimen (specimen) BLOOD SPECIMEN / Unknown 06/14/2014 11:51 AM CDT 06/14/2014 11:52 AM CDT Deonna Cobb MD LAB - CHEM ISTRY ORDERABLES Performing Organization Address [facility] de Phone Number [facility] ([facility]) * IMMUNOGLOBULINS IGG/IGM/IGA PANEL (06/14/2014 11:51 AM CDT) [facility] IgA 128 81 - 463 mg/dL [facility] ([facility]) IgG 980 694 - 1,618 mg/dL [facility] ([facility]) IgM 157 48 - 271 mg/dL [facility] ([facility]) Comment: Test Performed at: [facility] ??[phone] FERNANDA SYLVESTER DO,MPH Venous blood specimen (specimen) 06/14/2014 11:51 AM CDT 06/14/2014 11:52 AM CDT Deonna Cobb MD LAB - CHEM ISTRY ORDERABLES Performing Organization Address [facility]/ZIP Co de Phone Number [facility] ([facility]) * HEPATITIS C ANTIBODY (06/14/2014 11:51 AM CDT) Pathologist [facility] [place] Hepatitis C Antibody NON-REACTI VE NON-REACT NICOLE [facility] ([facility]) Signal/Cutoff 0.02 <1.00 [facility] ([facility]) Comment: Test Performed at: [facility] [address] ??[phone] FERNANDA SYLVESTER DO,MPH Blood specimen (specimen) BLOOD SPECIMEN / Unknown 06/14/2014 11:51 AM CDT 06/14/2014 11:52 AM CDT Deonna Cobb MD LAB - CHEM ISTRY ORDERABLES Performing Organization Address [facility] de Phone Number [facility] ([facility]) * COMPLEMENT C3 (06/14/2014 11:51 AM CDT) Pathologist [facility] [place] Complement C3 130 90 - 180 mg/dL [facility] ([facility]) Comment: Test Performed at: [facility] ??[phone] FERNANDA SYLVESTER DO,MPH Blood specimen (specimen) BLOOD SPECIMEN / Unknown 06/14/2014 11:51 AM CDT 06/14/2014 11:52 AM CDT Deonna Cobb MD LAB - CHEM ISTRY ORDERABLES Performing Organization Address City/[facility]/ZIP Co de Phone Number [facility] ([facility]) * (ABNORMAL) CULTURE AEROBIC (06/13/2014 4:29 PM CDT) Culture Aerobic SEE NOTE(A) [facility] ([facility]) Comment: ??CULTURE, AEROBIC BACTERIA WITH GRAM STAIN ?MICRO NUMBER: ?[id number] ??TEST STATUS: ? FINAL ??SPECIMEN SOURCE: ?? SKIN ??SPECIMEN QUALITY: ??ADEQUATE ??GRAM STAIN: ?No organisms or white blood cells seen ??RESULT: ?Light growth of Staphylococcus aureus ? This isolate demonstrates inducible ? clindamycin resistance. ??COMMENT: ? Skin kerry also present. ?S.aureus ?INT ?? VALDEMAR ?? AMOX/CLAVULANATE ? S ? <=4/2 ?? AMP/SULBACTAM ?S ? <=8/4 ?? CEFAZOLIN ?S ? <=4 ?? CIPROFLOXACIN ?S ? <=1 ?? CLINDAMYCIN ?R ? NR ?? ERYTHROMYCIN ? R ? >4 ?? GENTAMICIN ? S ? <=1 ?? LEVOFLOXACIN ? S ? <=0.5 ?? OXACILLIN ?S ? 0.5 1 ?? TETRACYCLINE ? S ? <=1 ?? TRIMETHOPRIM/SULFA ? S ? <=0.5/9.5 ?? VANCOMYCIN ? S ? 2 S=Susceptible ??I=Intermediate ??R=Resistant ??* = Not Tested NR = Not Reported ??NN = See Therapy Comments THERAPY COMMENTS ?Note 1: ?Oxacillin-susceptible staphylococci are ?susceptible to other penicillinase-stable ?penicillins (e.g. Methicillin, Nafcillin), beta- ?lactam/beta-lactamase inhibitor combinations, and ?cephems with staphylococcal indications, including ?Cefazolin. REPORT COMMENT: R EAR CANAL SPECIMEN TYPE->SKIN Test Performed at: [facility] ??[phone] EMMETT SANTIAGO MD Skin (tissue) specimen (specimen) 06/13/2014 4:29 PM CDT 06/13/2014 11:33 PM CDT Narrative [facility] ([facility]) - 06/16/2014 8:00 AM CDT R ear canal Specimen Type->Skin Cally Kruse MD LAB - MICROBIOLOGY O RDERABLES Performing Organization Address City/State/[facility] Co de Phone Number [facility] ([facility]) * GROSS + MICRO EXAM (05/30/2000 8:14 AM CDT) Result CASE NUMBER [id number] Comment: ORDERING PHYSICIAN ??EMILY BURDEN SPECIMEN TYPE ?Placenta Date ? 05/30/2000 Physician ?Soraida Gross Description ? The specimen is received fresh labeled with the patient's name and `placenta' and consists of a placenta with attached umbilical cord and membranes which weigh 940 gms. in toto. ??The placental disc measures 25 x 21 cm and up to 3.5 cm in thickness. ??The membranes are attached marginally to the placental disc. ??They are translucent pink carlos color. ??The umbilical cord is placed eccentrically on the disc coming within 4.5 cm of the nearest margin. ??The cord measures 7 cm in length and 1 cm in greatest diameter. ??Sectioning of the cord shows 3 vessels with no gross anomalies. ??The surface is a blue carlos color with the usual vascular arcade. ??No gross masses or lesions are identified. ??The maternal surface is a deep pink carlos color. The cotyledons are intact. ??Sectioning of the maternal surface discloses no gross infarcts or lesions. ??School Boat Driver sections are submitted as follows ??A-umbilical cord and membranes ??B- surface ??C- maternal surface. ??LBM/c Microscopic Exam ? Microscopic examination of the umbilical cord reveals three vascular channels with no evidence of funisitis or thrombosis. ??The chorioamniotic membranes are unremarkable. ?? Sections of the cotyledons reveal mature, well-vascularized chorionic villi with syncytial knots noted. ??There is no evidence of villitis or infarction. Diagnosis ?I. ??Placenta, excision ?A. ??Mature placenta. ?B. ??Placental hypertrophy, 940 grams. ?C. ??Chorioamniotic membranes with no pathologic changes. ?D. ??Three vessel umbilical cord with no pathologic changes. Commercial Construction Project Manager ? bk Pathologist ?Ijeoma Veliz M.D. [place]. ?05/31/2000 1116 <1> CPT code ? 8307/35248 MISCELLANEOUS SAMPLES / Unknown 05/30/2000 8:14 AM CDT 05/30/2000 8:15 AM CDT Historical Provider LAB - PATHOLOGY/C YTOLOGY ORDERABLES
--- OUTSIDE RECORDS SUMMARY | 2024-09-12 16:39 | XMS_ITS | Clinical Summary ---
Author Organization [facility] Address [address] [facility] Attn: Epic Prelude ADT ANGELINE TIDWELL [id number] Care Team Providers Care Bolt Maker Name Role Phone Unavailable Primary Care Provider Unavailabl e Allergies Active Allergy Reactions Criticality Noted Date Comments Carbamazepine Unknown 12/22/2021 Medications methotrexate sodium 25 mg/mL Solution Inject 0.8 mL (20 mg) by subcutaneous injection every 7 days. 24 mL 12/23/2021 7:36 PM CDT 2 Active clobetasoL (TEMOVATE) 0.05 % Cream APPLY DIRECTED TO ARMS AND LEGS DAILY NEEDED 60 Gram 01/09/2022 1:14 PM CDT 2 Active predniSONE (DELTASONE) 10 mg tablet Take 4 tablets for 4 days; then 3 tablets for 4 days; then 2 tablets for 4 days; then 1 tablet for 4 days; then STOP 40 Tablet 12/27/2021 6:05 PM CDT 2 Active prednisoLONE acetate (Pred Forte) 1 % suspension Instill 1 drop in both eyes 3 times daily for 1 week, then 1 drop in both eyes 2 times daily for 1 week, then 1 drop in both eyes once daily for 1 week, then 1 drop in both eyes as needed for pain and dryness 10 mL 1 1 Active acetaZOLAMIDE (DIAMOX) 250 mg tablet Take 1 Tablet (250 mg) by mouth 2 times daily. 180 Tablet 3 2 Active acetaZOLAMIDE (DIAMOX) 250 mg tablet Take 1 tablet (250 mg total) by mouth electrical engineering drafting officer before breakfast AND 2 tablets (500 mg total) nightly. 270 Tablet 3 06/17/2023 4:17 PM CDT 3 Active acetaZOLAMIDE (DIAMOX) 250 mg tablet Take 1 Tablet (250 mg) by mouth 2 times daily. 360 Tablet 3 3 Active est estrogens-methy lTESTOSTERone (ESTRATEST) 1.25-2.5 mg tablet Take 1 tablet by mouth once a day 90 Tablet 2 4 Active amoxicillin (AMOXIL) 500 mg capsule Take 1 Capsule (500 mg) by mouth 3 times daily until gone. 21 Capsule 02/02/2024 12:48 PM CDT 4 Active HYDROcodone-jf taminophen (NORCO) 7.5-325 mg Tablet Take 1 Tablet by mouth every 4-6 hours as needed for pain. Max Daily Amount: 6 Tablets 15 Tablet 02/02/2024 12:48 PM CDT 4 Active folic acid (FOLVITE) 1 mg tablet Take 1 Tablet (1 mg) by mouth 4 times daily. 360 Tablet 4 Active est estrogens-methy lTESTOSTERone (ESTRATEST) 1.25-2.5 mg tablet Take 1 tablet by mouth once a day 90 Tablet 08/22/2024 6:42 PM MECHANICAL DESIGN TECHNICIAN 4 Active albuterol sulfate HFA 90 mcg/actuation aerosol inhaler shake well and inhale one to two puffs into lungs every four to six hours as needed for cough, shortness of breath , or wheezing 8.5 Gram 08/06/2024 6:09 PM MECHANICAL DESIGN TECHNICIAN 4 Active benzonatate (TESSALON) 100 mg capsule Take one to two capsules (100-200 mg total) by mouth 3 (three) times a day as needed for cough 42 Capsule 08/06/2024 6:09 PM MECHANICAL DESIGN TECHNICIAN 4 Active doxycycline hyclate (VIBRAMYCIN) 100 mg capsule Take one capsule (100 mg total) by mouth 2 (two) times a day for 7 days 14 Capsule 08/06/2024 6:09 PM MECHANICAL DESIGN TECHNICIAN 4 Active predniSONE (DELTASONE) 10 mg tablet Take 1 tablet (10 mg) by mouth 2 (two) times a day 10 Tablet 08/06/2024 6:09 PM MECHANICAL DESIGN TECHNICIAN 4 Active Encounters Date Type Department Care Team Description 08/27/2024 External Device Data [facility] Provider, Abstract 06/19/2024 External Device Data [facility] Provider, Abstract from Last 3 Months Social History Tobacco Use Types Packs/Day Years Used Date Smoking Tobacco: Never Assessed Comments Unknown Sex and Gender Information Value Date Recorded Sex Assigned at Not on file Legal Sex Female 3:14 PM CDT Gender Identity Not on file Sexual Orientation Not on file Plan of Treatment Health Maintenance Due Date Last Done Comments DTAP/TDAP/TD VACCINES (1 - Tdap) 1987 HEPATITIS B VACCINES (1 of 3 - 19+ 3-dose series) 1987 CERVICAL CANCER SCREENING 1998 BREAST CANCER SCREENING 2008 COLORECTAL SCREENING 2013 Colorectal Cancer Screening 2013 FIT-DNA Q 3 years 2013 FIT/FOBT Q 1 year 2013 Flex Sig/CT Colonography Q 5 years 2013 ZOSTER VACCINE (1 of 2) 2018 INFLUENZA VACCINE (#1) 2024 PNEUMOCOCCAL VACCINE 0-64 YEARS Aged Out No longer eligible based on patient's age to complete this topic Insurance [employer]
== END 2024-09-10 09:11 | disposition home or self-care (01) ==
LOC: ANHIMG 09:11
PROVIDERS: Visit Provider Obstetrics & Gynecology
DX: Z12.31 Encounter for screening mammogram for malignant neoplasm of breast (principal)
CPT/HCPCS: 77063; 77067